=== PATIENT | male | born 1980 | race Caucasian/White ===

== ENCOUNTER 2019-02-28 13:49 | Emergency (ER) | payer SELFPAY ==
[2019-02-28] MEDS ORDERED: Amoxicillin 500 MG Cap PO SCH (20:00)
--- NOTE | 2019-03-01 13:39 | EDM.PDOC ---
ED HPI GENERAL MEDICAL PROBLEM - General Chief Complaint: ENT Problem Stated Complaint: HEARING PROBLEMS Time Seen by Provider: 02/28/19 14:05 Source of Information: Reports: Patient, Other History Limitations: Reports: No Limitations - History of Present Illness INITIAL COMMENTS - FREE TEXT/NARRATIVE: He reports that he has problems hearing out of the left ear. Recently the right ear hearing decreased; like there is something in it. He had some earphones on and lost the blue tip so is wondering if this could have fallen off in his ear since the timing was coincidental. He denies any symptoms of URI , sinusitis, earache or congestion or fever. He is noted to be congested and having significant drainage in the posterior throat, sinus area and states that he is "always snotty". He recently came here from [place] and he attributes this to the weather. Onset: Sudden Onset Date: 02/24/19 - Related Data Allergies Allergy/AdvReac Type Severity Reaction Status Date / Time No Known Allergies Allergy Verified 02/28/19 14:34 Home Meds: Home Meds . [No Known Home Meds] 02/28/19 [History] Past Medical History - Past Surgical History Head Surgeries/Procedures: Reports: None GI Surgical History: Reports: Hernia Repair/Other Social & Family History - Tobacco Use Smoking Status *Q: Current Every Day Smoker Years of Tobacco use: 2 Packs/Tins Daily: 0.5 - Alcohol Use Days Per Week of Alcohol Use: 7 Number of Drinks Per Day: 2 Total Drinks Per Week: 14 - Recreational Drug Use Recreational Drug Use: No ED ROS ENT - Review of Systems Review Of Systems: ROS reveals no pertinent complaints other than HPI. ED EXAM, ENT - Physical Exam Exam: See Below Text/Narrative:: Male in no acute distress. He is pleasant and conversive. His right ear has some brown wax in it but it is not in the area to block the TM. TMs are clear bilaterally. They look somewhat retracted with the right being mildly erythematous and with yellowish fluid apparent. Neck is supple; no lymphadenopathy. Posterior oropharynx reddened with evidence of drainage in posterior oropharynx. Lungs with some wheezing and rhonchi that clear some with cough. Heart rhythmic without murmur. Abdomen benign. NO peripheral edema. He is pleasant, conversive and appropriate. He appears to have hearing in both ears to some extent. Exam Limited By: No Limitations General Appearance: Alert, WD/WN, No Apparent Distress Course - Vital Signs Last Recorded V/S: Last Vital Signs Temp 96.3 F 02/28/19 13:55 Pulse 53 L 02/28/19 13:55 Resp 16 02/28/19 13:55 BP 131/81 02/28/19 13:55 Pulse Ox 96 02/28/19 13:55 - Orders/Labs/Meds Meds: Medications Discontinued Medications Generic Name Dose Route Start Last Admin Trade Name Carly PRN Reason Stop Dose Admin Amoxicillin 500 mg 02/28/19 20:00 Amoxil PO Q12HR ANGIE Departure - Departure Time of Disposition: 14:55 Disposition: Home, Self-Care 01 Condition: Good Clinical Impression: Otitis media, Sinusitis, Bronchitis - Discharge Information *PRESCRIPTION DRUG MONITORING PROGRAM REVIEWED*: Not Applicable *COPY OF PRESCRIPTION DRUG MONITORING REPORT IN PATIENT TORY: Not Applicable Instructions: Otitis Media, Adult, Ryqd-to-Vjae, Sinusitis, Adult, Prednisone tablets, Probiotics Referrals: PCP,Unknown [Primary Care Provider] - Forms: ED Department Discharge Additional Instructions: Get some Probiotic at the drugstore and take daily until antibiotic is done plus two weeks This is to decrease risk of intestinal infection that causes severe diarrhea Take amoxicillin 500 mg. take 2 by mouth twice daily for 10 days Take prednisone 20 mg. 3 tablets daily for 3 days. Take with food
== END 2019-02-28 14:55 | disposition home or self-care (01) ==
LOC: VM.ED 13:49
DX: H66.91 Otitis media, unspecified, right ear (principal); J40 Bronchitis, not specified as acute or chronic; J32.9 Chronic sinusitis, unspecified; F17.210 Nicotine dependence, cigarettes, uncomplicated
CPT/HCPCS: 99282; 99283-GF